=== PATIENT | female | born 1990 | race Caucasian/White ===

== ENCOUNTER 2019-08-09 15:31 | Inpatient (IN) | payer MEDICAID ==
[~2019-08-09] VITALS: Ht 160 cm; Wt 60.0 kg
[2019-08-09] MEDS ORDERED: RisperiDONE 1 MG TABLET PO ONE (16:00)
[2019-08-09] MEDS ORDERED: LORazepam 2 MG TABLET PO ONE (16:15)
[2019-08-09 16:17] LABS: BASOPHILS % (AUTO) 0.4 % (0.0-2.0); EOSINOPHILS % (AUTO) 0.1 % (1.0-6.0); HEMATOCRIT 40.4 % (36-46); HEMOGLOBIN 13.2 g/dL (12.0-16.0); LYMPHOCYTES # (AUTO) 0.7 K/uL (1.0-4.8); LYMPHOCYTES % (AUTO) 5.1 % (22.0-44.0); MEAN CORPUSCULAR HEMOGLOBIN 29.2 pg (26.0-34.0); MEAN CORPUSCULAR HGB CONC 32.8 G/dL (31.0-37.0); MEAN CORPUSCULAR VOLUME 89 fL (80-100); MONOCYTES # (AUTO) 0.6 K/uL (0.1-1.0); MONOCYTES % (AUTO) 4.7 % (2.0-9.0); NEUTROPHILS # (AUTO) 12.3 K/uL (1.8-7.7); PLATELET COUNT (AUTO) 281 K/uL (150-450); RED BLOOD CELL COUNT(AUTO) 4.53 MIL/uL (4.00-5.20); RED CELL DISTRIBUTION WIDTH 13.6 % (11.5-14.5)
[2019-08-09 16:30] LABS: NEUTROPHILS % (AUTO) 89.7 % (40.0-70.0)
[2019-08-09 16:49] LABS: ALANINE AMINOTRANSFERASE 12 U/L (12-78); ALBUMIN 4.1 g/dL (3.4-5.0); ALKALINE PHOSPHATASE 68 U/L (46-116); ANION GAP 14 mmol/L (8-16); ASPARTATE AMINOTRANSFERASE 12 U/L (15-37); BILIRUBIN,TOTAL 0.3 mg/dL (0.1-1.0); CALCIUM, TOTAL 9.2 mg/dL (8.8-10.5); CARBON DIOXIDE 25 mmol/L (22-29); CHLORIDE 100 mmol/L (98-107); GLOMERULAR FILTR. RATE CALC > 60 mL/min (>60); GLUCOSE,RANDOM 120 mg/dL (70-110); POTASSIUM 3.8 mmol/L (3.5-5.1); SODIUM SERUM 139 mmol/L (136-145); TOTAL PROTEIN, SERUM 8.5 g/dL (6.4-8.2); UREA NITROGEN, BLOOD 12 mg/dL (7-18)
[2019-08-09 16:54] LABS: AMPHET/METH SCREEN,URINE NEGATIVE (NEGATIVE); BARBITURATE SCREEN, URINE NEGATIVE (NEGATIVE); BENZODIAZEPINES SCREEN,URINE NEGATIVE (NEGATIVE); CANNABINOID SCREEN,URINE NEGATIVE (NEGATIVE); COCAINE SCREEN,URINE NEGATIVE (NEGATIVE); METHADONE SCREEN, URINE NEGATIVE (NEGATIVE); OPIATE SCREEN,URINE NEGATIVE (NEGATIVE)
[2019-08-09 16:55] LABS: PHENCYCLIDINE SCREEN,URINE NEGATIVE (NEGATIVE)
[2019-08-09 20:19] VITALS: BP 135/75
[2019-08-10 07:48] LABS: CHOL/HDL RATIO 2.4 (3.9-5.7)
[2019-08-10 08:57] VITALS: BP 110/88
[2019-08-10] MEDS: LORazepam 2 MG TABLET PO PRN (09:53)
[2019-08-10] MEDS: HALOPERIDOL 5 MG TABLET PO PRN (09:53)
[2019-08-10] MEDS: RisperiDONE 2 MG TABLET PO SCH ×2 (11:36→20:07)
[2019-08-10] MEDS ORDERED: DOCUSATE SODIUM 100 MG CAPSULE PO PRN (16:45)
[2019-08-10] MEDS ORDERED: ONDANSETRON HCL 4 MG TABLET PO PRN (16:45)
[2019-08-10] MEDS ORDERED: ALBUTEROL SULFATE HFA 90 MCG/PUFF 8 GM INHALER IH PRN (16:45)
[2019-08-10] MEDS ORDERED: IBUPROFEN 400 MG TABLET PO PRN (16:45)
[2019-08-10] MEDS ORDERED: GuaiFENesin/D-METHORPHAN [SUGAR-FREE] 200-20MG/10 ML SYRUP UDCUP PO PRN (16:45)
[2019-08-10] MEDS ORDERED: NICOTINE 14 MG/24 HOUR PATCH TD PRN (16:45)
[2019-08-10] MEDS ORDERED: MAG HYDROX/AL HYDROX/SIMETH ES 30 ML SUSPENSION UDCUP PO PRN (16:45)
[2019-08-10] MEDS ORDERED: MAGNESIUM HYDROXIDE SUSPENSION 30 ML UDCUP PO PRN (16:45)
[2019-08-10] MEDS ORDERED: PETROLATUM,WHITE 28 GM JELLY TP PRN (16:45)
[2019-08-10] MEDS ORDERED: LOPERAMIDE HCL 2 MG CAPSULE PO PRN (16:45)
[2019-08-10] MEDS ORDERED: ACETAMINOPHEN 325 MG TABLET PO PRN (16:45)
[2019-08-10] MEDS ORDERED: CloNIDine HCL 0.1 MG TABLET PO PRN (16:45)
[2019-08-10 19:14] VITALS: BP 102/61
[2019-08-11 07:34] LABS: APPEARANCE,URINE CLOUDY (CLEAR); BILIRUBIN,URINE NEGATIVE (NEGATIVE); GLUCOSE, URINE (UA) NEGATIVE (NEGATIVE); KETONES,URINE NEGATIVE (NEGATIVE); LEUKOCYTE ESTERASE ,URINE SMALL (NEGATIVE); NITRATE,URINE NEGATIVE (NEGATIVE); OCCULT BLOOD,URINE NEGATIVE (NEGATIVE); PH,URINE 6.5 (5.0-8.0); PROTEIN,URINE NEGATIVE (NEGATIVE); UROBILINOGEN,URINE 0.2 mg/dL (<=1.0)
[2019-08-11 07:41] LABS: AMPHET/METH SCREEN,URINE NEGATIVE (NEGATIVE); BARBITURATE SCREEN, URINE NEGATIVE (NEGATIVE); BENZODIAZEPINES SCREEN,URINE NEGATIVE (NEGATIVE); CANNABINOID SCREEN,URINE NEGATIVE (NEGATIVE); COCAINE SCREEN,URINE NEGATIVE (NEGATIVE); METHADONE SCREEN, URINE NEGATIVE (NEGATIVE); OPIATE SCREEN,URINE NEGATIVE (NEGATIVE)
[2019-08-11 07:42] LABS: PHENCYCLIDINE SCREEN,URINE NEGATIVE (NEGATIVE)
[2019-08-11 07:46] LABS: BACTERIA,URINE Few /HPF (None Seen); RBC,URINE 0-2 /HPF (0-2); SQUAMOUS EPITHELIAL CELL,UR Moderate /LPF (None Seen)
[2019-08-11 08:00] VITALS: BP 106/72
[2019-08-11] MEDS: RisperiDONE 2 MG TABLET PO SCH ×2 (09:26→20:40)
[2019-08-11 16:16] VITALS: BP 129/86
[2019-08-12] MEDS: RisperiDONE 2 MG TABLET PO SCH ×2 (08:50→20:22)
[2019-08-12 09:17] VITALS: BP 114/80
[2019-08-12 16:48] VITALS: BP 116/93
[2019-08-12] MEDS: CEPHALEXIN MONOHYDRATE 500 MG CAPSULE PO SCH (23:46)
[2019-08-13 09:27] VITALS: BP 133/57
[2019-08-13] MEDS: HALOPERIDOL 5 MG TABLET PO PRN (09:27)
[2019-08-13] MEDS: LORazepam 2 MG TABLET PO PRN (09:27)
[2019-08-13] MEDS: RisperiDONE 2 MG TABLET PO SCH ×2 (09:27→20:28)
[2019-08-13] MEDS: CEPHALEXIN MONOHYDRATE 500 MG CAPSULE PO SCH ×3 (09:27→23:57)
[2019-08-13 18:59] VITALS: BP 121/75
[2019-08-14 08:38] LABS: BASOPHILS % (AUTO) 0.4 % (0.0-2.0); EOSINOPHILS % (AUTO) 1.4 % (1.0-6.0); HEMATOCRIT 39.4 % (36-46); HEMOGLOBIN 12.9 g/dL (12.0-16.0); LYMPHOCYTES # (AUTO) 1.1 K/uL (1.0-4.8); LYMPHOCYTES % (AUTO) 12.3 % (22.0-44.0); MEAN CORPUSCULAR HEMOGLOBIN 29.2 pg (26.0-34.0); MEAN CORPUSCULAR HGB CONC 32.7 G/dL (31.0-37.0); MEAN CORPUSCULAR VOLUME 89 fL (80-100); MONOCYTES # (AUTO) 0.5 K/uL (0.1-1.0); NEUTROPHILS # (AUTO) 7.2 K/uL (1.8-7.7); NEUTROPHILS % (AUTO) 79.9 % (40.0-70.0); PLATELET COUNT (AUTO) 271 K/uL (150-450); RED BLOOD CELL COUNT(AUTO) 4.41 MIL/uL (4.00-5.20); RED CELL DISTRIBUTION WIDTH 13.5 % (11.5-14.5)
[2019-08-14] MEDS: CEPHALEXIN MONOHYDRATE 500 MG CAPSULE PO SCH ×3 (09:10→23:59)
[2019-08-14] MEDS: RisperiDONE 2 MG TABLET PO SCH ×2 (09:10→20:33)
[2019-08-14] MEDS: HALOPERIDOL 5 MG TABLET PO PRN (09:12)
[2019-08-14] MEDS: LORazepam 2 MG TABLET PO PRN (09:12)
[2019-08-14] MEDS: DIVALPROEX SODIUM 500 MG DR TABLET PO SCH ×2 (10:15→20:33)
[2019-08-14 10:58] VITALS: BP 113/66
[2019-08-14 16:10] VITALS: BP 108/40
[2019-08-15 08:27] VITALS: BP 116/64
[2019-08-15] MEDS: LORazepam 2 MG TABLET PO PRN (08:44)
[2019-08-15] MEDS: CEPHALEXIN MONOHYDRATE 500 MG CAPSULE PO SCH ×3 (08:44→23:51)
[2019-08-15] MEDS: RisperiDONE 2 MG TABLET PO SCH ×2 (08:44→20:28)
[2019-08-15] MEDS: DIVALPROEX SODIUM 500 MG DR TABLET PO SCH ×2 (08:44→20:28)
[2019-08-15] MEDS: HALOPERIDOL 5 MG TABLET PO PRN (08:44)
[2019-08-15 16:00] VITALS: BP 113/70
[2019-08-16] MEDS: CEPHALEXIN MONOHYDRATE 500 MG CAPSULE PO SCH ×2 (08:48→15:56)
[2019-08-16] MEDS: DIVALPROEX SODIUM 500 MG DR TABLET PO SCH ×2 (08:48→20:20)
[2019-08-16] MEDS: RisperiDONE 2 MG TABLET PO SCH ×2 (08:48→20:20)
[2019-08-16 09:46] VITALS: BP 109/72
[2019-08-16 16:02] VITALS: BP 110/80
[2019-08-17] MEDS: CEPHALEXIN MONOHYDRATE 500 MG CAPSULE PO SCH ×3 (00:01→16:03)
[2019-08-17] MEDS: ZOLPIDEM TARTRATE 10 MG TABLET PO PRN (00:17)
[2019-08-17 01:35] VITALS: BP 116/84
[2019-08-17] MEDS: DIVALPROEX SODIUM 500 MG DR TABLET PO SCH ×2 (08:48→20:55)
[2019-08-17] MEDS: RisperiDONE 2 MG TABLET PO SCH ×2 (08:48→20:55)
[2019-08-17 10:19] VITALS: BP 108/66
[2019-08-17 17:12] VITALS: BP 114/85
[2019-08-18] MEDS: CEPHALEXIN MONOHYDRATE 500 MG CAPSULE PO SCH ×3 (00:01→16:57)
[2019-08-18] MEDS: ZOLPIDEM TARTRATE 10 MG TABLET PO PRN (02:53)
[2019-08-18 08:02] VITALS: BP 95/60
[2019-08-18] MEDS: RisperiDONE 2 MG TABLET PO SCH ×2 (09:07→20:53)
[2019-08-18] MEDS: DIVALPROEX SODIUM 500 MG DR TABLET PO SCH ×2 (09:07→20:53)
[2019-08-18 16:08] VITALS: BP 107/63
[2019-08-19 08:25] VITALS: BP 131/78
[2019-08-19 09:51] VITALS: BP 131/78
[2019-08-19] MEDS: RisperiDONE 2 MG TABLET PO SCH (09:55)
[2019-08-19] MEDS: DIVALPROEX SODIUM 500 MG DR TABLET PO SCH ×2 (09:55→21:12)
[2019-08-19 19:25] VITALS: BP 105/64
[2019-08-19] MEDS: RisperiDONE 3 MG TABLET PO SCH (21:13)
[2019-08-20 00:50] VITALS: BP 102/60
[2019-08-20] MEDS: ZOLPIDEM TARTRATE 10 MG TABLET PO PRN ×2 (00:51→20:13)
[2019-08-20 08:15] VITALS: BP 125/57
[2019-08-20] MEDS: DIVALPROEX SODIUM 500 MG DR TABLET PO SCH ×2 (08:38→20:13)
[2019-08-20] MEDS: RisperiDONE 3 MG TABLET PO SCH ×2 (08:38→20:14)
[2019-08-20 16:00] VITALS: BP 101/70
[2019-08-20 18:30] VITALS: BP 117/80
[2019-08-20] MEDS: LORazepam 2 MG TABLET PO PRN (18:35)
[2019-08-21 08:26] VITALS: BP 117/74
[2019-08-21] MEDS: RisperiDONE 3 MG TABLET PO SCH (09:29)
[2019-08-21] MEDS: DIVALPROEX SODIUM 500 MG DR TABLET PO SCH (09:29)
[2019-08-21] MEDS ORDERED: RISP3 PO (09:34)
[2019-08-21] MEDS ORDERED: DIVA-78 PO (09:34)
== END 2019-08-21 17:00 | disposition home or self-care (01) | DRG 885 ==
LOC: EMS 15:33 → 3EI 19:46
DX: F25.1 Schizoaffective disorder, depressive type (principal); N39.0 Urinary tract infection, site not specified; R45.851 Suicidal ideations; F41.9 Anxiety disorder, unspecified; F19.10 Other psychoactive substance abuse, uncomplicated; E78.5 Hyperlipidemia, unspecified; Z79.899 Other long term (current) drug therapy; Z71.51 Drug abuse counseling and surveillance of drug abuser
CPT/HCPCS: 80307; 87086; G0480

== ENCOUNTER 2021-11-01 17:53 | Inpatient (IN) | payer MEDICAID ==
[~2021-11-01] VITALS: Ht 161.3 cm; Wt 73.2 kg
[~2021-11-01 17:53] MED LIST: DIVA-112 PO; RISP3TAB35 PO
[2021-11-01] MEDS ORDERED: LORazepam 2 MG TABLET PO PRN (18:45)
[2021-11-01] MEDS ORDERED: ZOLPIDEM TARTRATE 10 MG TABLET PO PRN (18:45)
[2021-11-01] MEDS ORDERED: HALOPERIDOL 5 MG TABLET PO ONE (18:45)
[2021-11-01] MEDS ORDERED: LORazepam 1 MG TABLET PO ONE (18:45)
[2021-11-01] MEDS ORDERED: OLANZapine 5 MG RAPDIS TABLET PO PRN (18:45)
[2021-11-01 19:03] LABS: BASOPHILS % (AUTO) 0.5 % (0.0-2.0); HEMATOCRIT 40.7 % (36-46); HEMOGLOBIN 13.7 g/dL (12.0-16.0); LYMPHOCYTES # (AUTO) 1.4 K/uL (1.0-4.8); LYMPHOCYTES % (AUTO) 15.3 % (22.0-44.0); MEAN CORPUSCULAR HEMOGLOBIN 29.6 pg (26.0-34.0); MEAN CORPUSCULAR HGB CONC 33.8 G/dL (31.0-37.0); MEAN CORPUSCULAR VOLUME 88 fL (80-100); MONOCYTES # (AUTO) 0.7 K/uL (0.1-1.0); MONOCYTES % (AUTO) 7.3 % (2.0-9.0); NEUTROPHILS # (AUTO) 7.1 K/uL (1.8-7.7); NEUTROPHILS % (AUTO) 75.9 % (40.0-70.0); PLATELET COUNT (AUTO) 367 K/uL (150-450); RED BLOOD CELL COUNT(AUTO) 4.65 MIL/uL (4.00-5.20); RED CELL DISTRIBUTION WIDTH 14.2 % (11.5-14.5)
[2021-11-01 19:14] LABS: ANION GAP 12 mmol/L (8-16); CALCIUM, TOTAL 9.4 mg/dL (8.8-10.5); CARBON DIOXIDE 26 mmol/L (22-29); CHLORIDE 99 mmol/L (98-107); CREATININE 0.83 mg/dL (0.60-1.30); GLOMERULAR FILTR. RATE CALC > 60 mL/min (>60); GLUCOSE,RANDOM 118 mg/dL (70-110); POTASSIUM 3.9 mmol/L (3.5-5.1); SODIUM SERUM 137 mmol/L (136-145); UREA NITROGEN, BLOOD 10 mg/dL (7-18)
[2021-11-01 19:21] LABS: ALANINE AMINOTRANSFERASE 27 U/L (12-78); ALBUMIN 3.6 g/dL (3.4-5.0); ALKALINE PHOSPHATASE 81 U/L (46-116); ASPARTATE AMINOTRANSFERASE 18 U/L (15-37); BILIRUBIN,TOTAL 0.2 mg/dL (0.1-1.0); TOTAL PROTEIN, SERUM 8.4 g/dL (6.4-8.2)
[2021-11-01 19:28] LABS: COVID AG,FIA SOURCE NASOPHARYNGEAL
[2021-11-01 19:32] LABS: APPEARANCE,URINE CLEAR (CLEAR); BILIRUBIN,URINE NEGATIVE (NEGATIVE); GLUCOSE, URINE (UA) NEGATIVE (NEGATIVE); KETONES,URINE TRACE mg/dL (NEGATIVE); LEUKOCYTE ESTERASE ,URINE SMALL (NEGATIVE); NITRATE,URINE NEGATIVE (NEGATIVE); OCCULT BLOOD,URINE NEGATIVE (NEGATIVE); PROTEIN,URINE NEGATIVE (NEGATIVE); UROBILINOGEN,URINE 0.2 mg/dL (<=1.0)
[2021-11-01 19:39] LABS: AMPHET/METH SCREEN,URINE POSITIVE (NEGATIVE); BARBITURATE SCREEN, URINE NEGATIVE (NEGATIVE); BENZODIAZEPINES SCREEN,URINE NEGATIVE (NEGATIVE); CANNABINOID SCREEN,URINE NEGATIVE (NEGATIVE); COCAINE SCREEN,URINE NEGATIVE (NEGATIVE); METHADONE SCREEN, URINE NEGATIVE (NEGATIVE); OPIATE SCREEN,URINE NEGATIVE (NEGATIVE)
[2021-11-01 19:43] LABS: PHENCYCLIDINE SCREEN,URINE NEGATIVE (NEGATIVE)
[2021-11-01 19:49] LABS: BACTERIA,URINE Many /HPF (None Seen); SQUAMOUS EPITHELIAL CELL,UR Rare /LPF (None Seen)
[2021-11-01 21:03] LABS: HCG,QUANTITATIVE 8320 mIU/mL (0-6)
[2021-11-02 01:01] VITALS: BP 121/80
[2021-11-02 06:46] LABS: CHOL/HDL RATIO 2.6 (3.9-5.7)
[2021-11-02] MEDS ORDERED: CYANOCOBALAMIN 1,000 MCG/ML VIAL IM ONE (09:30)
[2021-11-02] MEDS ORDERED: GuaiFENesin/D-METHORPHAN [SUGAR-FREE] 200-20MG/10 ML SYRUP UDCUP PO PRN (09:30)
[2021-11-02] MEDS ORDERED: LOPERAMIDE HCL 2 MG CAPSULE PO PRN (09:30)
[2021-11-02] MEDS ORDERED: HydrOXYzine PAMOATE 50 MG CAPSULE PO PRN (09:30)
[2021-11-02 09:46] VITALS: BP 118/79
[2021-11-02 09:49] VITALS: BP 118/79
[2021-11-02] MEDS ORDERED: LURASIDONE HCL 20 MG TABLET PO PRN (14:15)
[2021-11-02] MEDS ORDERED: DiphenhydrAMINE HCL 25 MG CAPSULE PO PRN ×2 (14:15)
[2021-11-02] MEDS: PRENATAL NO.137/IRON/FOLIC ACID TABLET PO SCH (14:40)
[2021-11-02] MEDS: LURASIDONE HCL 40 MG TABLET PO SCH (16:03)
[2021-11-02] MEDS: THIAMINE 100 MG TABLET PO SCH (16:03)
[2021-11-02 16:54] VITALS: BP 112/65
[2021-11-03 07:34] LABS: HEMOGLOBIN A1C 5.6 % (3.8-5.6)
[2021-11-03 07:39] LABS: APPEARANCE,URINE CLOUDY (CLEAR); BILIRUBIN,URINE NEGATIVE (NEGATIVE); GLUCOSE, URINE (UA) NEGATIVE (NEGATIVE); KETONES,URINE NEGATIVE (NEGATIVE); LEUKOCYTE ESTERASE ,URINE NEGATIVE (NEGATIVE); NITRATE,URINE POSITIVE (NEGATIVE); OCCULT BLOOD,URINE NEGATIVE (NEGATIVE); PH,URINE 6.5 (5.0-8.0); PROTEIN,URINE NEGATIVE (NEGATIVE); UROBILINOGEN,URINE 0.2 mg/dL (<=1.0)
[2021-11-03 07:43] LABS: BACTERIA,URINE Many /HPF (None Seen); RBC,URINE None Seen /HPF (0-2); WBC,URINE 0-2 /HPF (0-5)
[2021-11-03 07:47] LABS: CHOL/HDL RATIO 2.8 (3.9-5.7); FREE T4 (FREE THYROXINE) 0.96 ng/dL (0.76-1.46); THYROID STIMULATING HORMONE 0.52 uIU/mL (0.36-3.74)
[2021-11-03 09:00] VITALS: BP 105/66
[2021-11-03] MEDS: THIAMINE 100 MG TABLET PO SCH ×2 (09:00→16:18)
[2021-11-03] MEDS: FOLIC ACID 1 MG TABLET PO SCH (09:00)
[2021-11-03] MEDS: MULTIVITAMINS WITH MINERALS, THERAPEUTIC TABLET PO SCH (09:01)
[2021-11-03] MEDS: PRENATAL NO.137/IRON/FOLIC ACID TABLET PO SCH (09:01)
[2021-11-03 09:14] VITALS: BP 100/56
[2021-11-03 13:51] VITALS: BP 117/89
[2021-11-03] MEDS ORDERED: LURA40TA2 PO (15:44)
[2021-11-03] MEDS ORDERED: PREN-217 PO (15:44)
[2021-11-03] MEDS: LURASIDONE HCL 40 MG TABLET PO SCH (16:18)
[2021-11-03 16:29] VITALS: BP 110/70
[2021-11-04 08:00] VITALS: BP 107/61
[2021-11-04] MEDS: MULTIVITAMINS WITH MINERALS, THERAPEUTIC TABLET PO SCH (09:00)
[2021-11-04 09:20] VITALS: BP 110/72
[2021-11-04] MEDS: THIAMINE 100 MG TABLET PO SCH (11:13)
[2021-11-04] MEDS: PRENATAL NO.137/IRON/FOLIC ACID TABLET PO SCH (11:13)
[2021-11-04] MEDS: FOLIC ACID 1 MG TABLET PO SCH (11:14)
== END 2021-11-04 15:10 | disposition home or self-care (01) | DRG 750 ==
LOC: EMS 17:58 → 3EI 23:00
PROVIDERS: ADMIT Psychiatry & Neurology Psychiatry; ATTEND Psychiatry & Neurology Psychiatry
DX: F25.1 Schizoaffective disorder, depressive type (principal); Z59.02 Unsheltered homelessness; F10.10 Alcohol abuse, uncomplicated; F19.10 Other psychoactive substance abuse, uncomplicated; F15.90 Other stimulant use, unspecified, uncomplicated; F41.0 Panic disorder [episodic paroxysmal anxiety]; F17.200 Nicotine dependence, unspecified, uncomplicated; Z20.822 Contact with and (suspected) exposure to COVID-19; Y90.9 Presence of alcohol in blood, level not specified; Z91.19 Patient's noncompliance with other medical treatment and regimen; Z79.899 Other long term (current) drug therapy
CPT/HCPCS: 80053; 80061; 81001; 83036; 84439; 84443; 84702; 84703; 85025; 86592; 87086; 99285; G0480; J3420

== ENCOUNTER 2021-11-22 10:13 | Emergency (ER) | payer MEDICAID ==
[~2021-11-22] VITALS: Ht 157.5 cm; Wt 60.0 kg
[~2021-11-22 10:13] MED LIST changes: -DIVA-112 PO; +LURA40TA2 PO; +PREN-217 PO; -RISP3TAB35 PO
[2021-11-22] MEDS ORDERED: ACETAMINOPHEN 325 MG TABLET PO ONE (11:15)
[2021-11-22 11:39] LABS: BASOPHILS % (AUTO) 0.8 % (0.0-2.0); HEMATOCRIT 40.6 % (36-46); HEMOGLOBIN 13.5 g/dL (12.0-16.0); LYMPHOCYTES # (AUTO) 1.1 K/uL (1.0-4.8); LYMPHOCYTES % (AUTO) 14.8 % (22.0-44.0); MEAN CORPUSCULAR HEMOGLOBIN 29.6 pg (26.0-34.0); MEAN CORPUSCULAR HGB CONC 33.2 G/dL (31.0-37.0); MEAN CORPUSCULAR VOLUME 89 fL (80-100); MONOCYTES # (AUTO) 0.6 K/uL (0.1-1.0); MONOCYTES % (AUTO) 8.4 % (2.0-9.0); NEUTROPHILS # (AUTO) 5.8 K/uL (1.8-7.7); PLATELET COUNT (AUTO) 358 K/uL (150-450); RED BLOOD CELL COUNT(AUTO) 4.55 MIL/uL (4.00-5.20); RED CELL DISTRIBUTION WIDTH 14.8 % (11.5-14.5)
[2021-11-22 11:46] LABS: ANION GAP 9 mmol/L (8-16); CARBON DIOXIDE 27 mmol/L (22-29); CHLORIDE 101 mmol/L (98-107); CREATININE 0.74 mg/dL (0.60-1.30); GLOMERULAR FILTR. RATE CALC > 60 mL/min (>60); GLUCOSE,RANDOM 81 mg/dL (70-110); POTASSIUM 3.6 mmol/L (3.5-5.1); SODIUM SERUM 137 mmol/L (136-145); UREA NITROGEN, BLOOD 9 mg/dL (7-18)
[2021-11-22 11:51] LABS: COVID AG,FIA SOURCE NASOPHARYNGEAL
[2021-11-22 12:13] LABS: ALANINE AMINOTRANSFERASE 12 U/L (12-78); ALBUMIN 3.3 g/dL (3.4-5.0); ALKALINE PHOSPHATASE 69 U/L (46-116); ASPARTATE AMINOTRANSFERASE 9 U/L (15-37); BILIRUBIN,TOTAL 0.2 mg/dL (0.1-1.0); HCG,QUANTITATIVE 118316 mIU/mL (0-6); TOTAL PROTEIN, SERUM 7.7 g/dL (6.4-8.2)
[2021-11-22 12:32] VITALS: BP 114/56
[2021-11-22 16:23] LABS: AMPHET/METH SCREEN,URINE POSITIVE (NEGATIVE); BARBITURATE SCREEN, URINE NEGATIVE (NEGATIVE); BENZODIAZEPINES SCREEN,URINE NEGATIVE (NEGATIVE); CANNABINOID SCREEN,URINE NEGATIVE (NEGATIVE); COCAINE SCREEN,URINE NEGATIVE (NEGATIVE); METHADONE SCREEN, URINE NEGATIVE (NEGATIVE); OPIATE SCREEN,URINE NEGATIVE (NEGATIVE)
[2021-11-22 16:25] LABS: PHENCYCLIDINE SCREEN,URINE NEGATIVE (NEGATIVE)
== END 2021-11-22 15:38 | disposition home or self-care (01) ==
LOC: EMS 10:13
DX: O26.891 Other specified pregnancy related conditions, first trimester (principal); F41.9 Anxiety disorder, unspecified; F32.9 Major depressive disorder, single episode, unspecified; Z79.899 Other long term (current) drug therapy; Z3A.01 Less than 8 weeks gestation of pregnancy; Z20.822 Contact with and (suspected) exposure to COVID-19
CPT/HCPCS: 36415; 76801; 80053; 80307; 84702; 85025; 87426; 99284; G0480

== ENCOUNTER 2023-12-21 18:01 | Inpatient (IN) | payer MEDICAID ==
[~2023-12-21] VITALS: Ht 162.6 cm; Wt 69.0 kg
[~2023-12-21 18:01] MED LIST changes: +BUPR-49 PO; -LURA40TA2 PO; -PREN-217 PO
[2023-12-21 18:33] LABS: BASOPHILS % (AUTO) 0.5 % (0.0-2.0); EOSINOPHILS % (AUTO) 1.1 % (1.0-6.0); HEMOGLOBIN 13.8 g/dL (12.0-16.0); LYMPHOCYTES # (AUTO) 2.2 K/uL (1.0-4.8); LYMPHOCYTES % (AUTO) 16.9 % (22.0-44.0); MEAN CORPUSCULAR HEMOGLOBIN 29.5 pg (26.0-34.0); MEAN CORPUSCULAR HGB CONC 32.9 G/dL (31.0-37.0); MEAN CORPUSCULAR VOLUME 90 fL (80-100); MONOCYTES % (AUTO) 7.2 % (2.0-9.0); NEUTROPHILS # (AUTO) 9.9 K/uL (1.8-7.7); NEUTROPHILS % (AUTO) 74.3 % (40.0-70.0); PLATELET COUNT (AUTO) 394 K/uL (150-450); RED BLOOD CELL COUNT(AUTO) 4.68 MIL/uL (4.00-5.20); RED CELL DISTRIBUTION WIDTH 13.7 % (11.5-14.5); WHITE BLOOD COUNT (AUTO) 13.3 K/uL (4.5-11.0)
[2023-12-21 18:45] LABS: ANION GAP 10 mmol/L (8-16); CALCIUM, TOTAL 9.1 mg/dL (8.8-10.5); CARBON DIOXIDE 27 mmol/L (22-29); CHLORIDE 98 mmol/L (98-107); CREATININE 0.98 mg/dL (0.60-1.30); GLOMERULAR FILTR. RATE CALC > 60 mL/min (>60); GLUCOSE,RANDOM 97 mg/dL (70-110); POTASSIUM 4.1 mmol/L (3.5-5.1); SODIUM SERUM 135 mmol/L (136-145); UREA NITROGEN, BLOOD 11 mg/dL (7-18)
[2023-12-21 18:58] LABS: ALANINE AMINOTRANSFERASE 21 U/L (12-78); ALBUMIN 3.7 g/dL (3.4-5.0); ALKALINE PHOSPHATASE 80 U/L (46-116); ASPARTATE AMINOTRANSFERASE 18 U/L (15-37); BILIRUBIN,TOTAL 0.2 mg/dL (0.1-1.0); HCG,QUANTITATIVE < 1 mIU/mL (0-6); TOTAL PROTEIN, SERUM 8.5 g/dL (6.4-8.2)
[2023-12-21 19:02] LABS: PH,URINE DRUG SCREEN 5.5 (5.0-8.0)
[2023-12-21 19:12] LABS: COVID AG,FIA SOURCE NPH
[2023-12-21 19:34] LABS: ALCOHOL, URINE DRUG SCREEN NEGATIVE (NEGATIVE); AMPHET/METH SCREEN,URINE POSITIVE (NEGATIVE); BARBITURATE SCREEN, URINE NEGATIVE (NEGATIVE); BENZODIAZEPINES SCREEN,URINE NEGATIVE (NEGATIVE); CANNABINOID SCREEN,URINE NEGATIVE (NEGATIVE); COCAINE SCREEN,URINE NEGATIVE (NEGATIVE); METHADONE SCREEN, URINE NEGATIVE (NEGATIVE); OPIATE SCREEN,URINE NEGATIVE (NEGATIVE); PHENCYCLIDINE SCREEN,URINE NEGATIVE (NEGATIVE)
[2023-12-21 19:36] LABS: SARS-COV2 (COVID) ANTIGEN,FIA Negative (Negative)
[2023-12-21 19:52] LABS: ALCOHOL, BLOOD (SERUM) < 3 mg/dL (0-10)
[2023-12-21] MEDS ORDERED: ZOLPIDEM TARTRATE 10 MG TABLET PO PRN (20:45)
[2023-12-21] MEDS: LORazepam 2 MG TABLET PO PRN (21:03)
[2023-12-21] MEDS: HALOPERIDOL 5 MG TABLET PO PRN (21:03)
[2023-12-21 23:20] VITALS: BP 110/74; PULSE 90; RESP 18; TEMP 97.6; O2SAT 98
[2023-12-22] MEDS ORDERED: MAGNESIUM HYDROXIDE SUSPENSION 30 ML UDCUP PO PRN (07:00)
[2023-12-22] MEDS ORDERED: PETROLATUM,WHITE 28 GM JELLY TP PRN (07:00)
[2023-12-22] MEDS ORDERED: CloNIDine HCL 0.1 MG TABLET PO PRN (07:00)
[2023-12-22] MEDS ORDERED: NICOTINE 14 MG/24 HOUR PATCH TD PRN (07:00)
[2023-12-22] MEDS ORDERED: LOPERAMIDE HCL 2 MG CAPSULE PO PRN (07:00)
[2023-12-22] MEDS ORDERED: ACETAMINOPHEN 325 MG TABLET PO PRN (07:00)
[2023-12-22] MEDS ORDERED: GuaiFENesin/D-METHORPHAN [SUGAR-FREE] 200-20MG/10 ML SYRUP UDCUP PO PRN (07:00)
[2023-12-22] MEDS ORDERED: ALBUTEROL SULFATE HFA 90 MCG/PUFF 8 GM INHALER IH PRN (07:00)
[2023-12-22] MEDS ORDERED: MAG HYDROX/ALUMINUM HYD/SIMETH ES 30 ML SUSPENSION UDCUP PO PRN (07:00)
[2023-12-22] MEDS ORDERED: ONDANSETRON HCL 4 MG TABLET PO PRN (07:00)
[2023-12-22] MEDS ORDERED: IBUPROFEN 400 MG TABLET PO PRN (07:00)
[2023-12-22 10:26] VITALS: BP 115/81; PULSE 97; RESP 18; TEMP 96.8; O2SAT 98
[2023-12-22] MEDS ORDERED: ARIP10TA38 PO (16:47)
[2023-12-22] MEDS: ARIPiprazole 10 MG TABLET PO SCH (18:09)
[2023-12-22 21:24] VITALS: BP 125/77; PULSE 76; RESP 18; TEMP 97.1; O2SAT 98
[2023-12-23 09:10] LABS: HEMOGLOBIN A1C 5.8 % (3.8-5.6)
[2023-12-23 09:24] LABS: CHOL/HDL RATIO 2.8 (3.9-5.7); THYROID STIMULATING HORMONE 0.23 uIU/mL (0.36-3.74)
[2023-12-23 09:34] VITALS: BP 111/56; PULSE 99; RESP 18; TEMP 97.4; O2SAT 97
[2023-12-23 20:42] VITALS: BP 111/56; PULSE 99; RESP 18; TEMP 97.4; O2SAT 97
[2023-12-24 09:23] VITALS: TEMP 97
[2023-12-24 20:45] VITALS: BP 106/61; PULSE 77; RESP 19; TEMP 97.9; O2SAT 98
[2023-12-24 20:45] LABS: APPEARANCE,URINE CLEAR (CLEAR); BILIRUBIN,URINE NEGATIVE (NEGATIVE); COLOR,URINE LIGHT YELLOW (YELLOW); GLUCOSE, URINE (UA) NEGATIVE (NEGATIVE); KETONES,URINE NEGATIVE (NEGATIVE); LEUKOCYTE ESTERASE ,URINE NEGATIVE (NEGATIVE); NITRATE,URINE NEGATIVE (NEGATIVE); OCCULT BLOOD,URINE NEGATIVE (NEGATIVE); PH,URINE 6.5 (5.0-8.0); PH,URINE DRUG SCREEN 6.5 (5.0-8.0); PROTEIN,URINE TRACE mg/dL (NEGATIVE); SPECIFIC GRAVITIY, URINE 1.023 (1.003-1.030); UROBILINOGEN,URINE <=1.0 mg/dL (<=1.0)
[2023-12-24 20:51] LABS: ALCOHOL, URINE DRUG SCREEN NEGATIVE (NEGATIVE); AMPHET/METH SCREEN,URINE NEGATIVE (NEGATIVE); BARBITURATE SCREEN, URINE NEGATIVE (NEGATIVE); BENZODIAZEPINES SCREEN,URINE NEGATIVE (NEGATIVE); CANNABINOID SCREEN,URINE NEGATIVE (NEGATIVE); COCAINE SCREEN,URINE NEGATIVE (NEGATIVE); METHADONE SCREEN, URINE NEGATIVE (NEGATIVE); OPIATE SCREEN,URINE NEGATIVE (NEGATIVE); PHENCYCLIDINE SCREEN,URINE NEGATIVE (NEGATIVE)
[2023-12-25 09:06] VITALS: BP 100/56; PULSE 84; RESP 18; TEMP 97.4; O2SAT 98
[2023-12-25] MEDS: DOCUSATE SODIUM 100 MG CAPSULE PO PRN (10:41)
[2023-12-25] MEDS ORDERED: ARIP10TA38 PO (14:36)
== END 2023-12-25 17:00 | disposition home or self-care (01) | DRG 750 ==
LOC: EMS 18:01 → 3EI 21:51
PROVIDERS: ADMIT Psychiatry & Neurology Psychiatry; ATTEND Psychiatry & Neurology Psychiatry
PROC: GZHZZZZ Group Psychotherapy (ICD-10-PCS; principal; 2023-12-22)
DX: F25.1 Schizoaffective disorder, depressive type (principal); E87.1 Hypo-osmolality and hyponatremia; R45.851 Suicidal ideations; Z20.822 Contact with and (suspected) exposure to COVID-19; D72.829 Elevated white blood cell count, unspecified; F41.9 Anxiety disorder, unspecified; F15.10 Other stimulant abuse, uncomplicated; Z79.899 Other long term (current) drug therapy; Z88.8 Allergy status to other drugs, medicaments and biological substances
CPT/HCPCS: 80053; 80061; 80307; 81003; 83036; 84443; 84702; 85025; 87081; 99285; G0480

== ENCOUNTER 2024-07-29 23:49 | Emergency (ER) | payer MEDICAID ==
[~2024-07-29] VITALS: Ht 160 cm; Wt 59.1 kg
[~2024-07-29 23:49] MED LIST changes: +ARIP10TA38 PO; -BUPR-49 PO
[2024-07-30 00:35] VITALS: TEMP 97.9
[2024-07-30 01:22] LABS: ANION GAP 13 mmol/L (8-16); CALCIUM, TOTAL 9.7 mg/dL (8.8-10.5); CARBON DIOXIDE 24 mmol/L (22-29); CHLORIDE 101 mmol/L (98-107); GLOMERULAR FILTR. RATE CALC > 60 mL/min (>60); GLUCOSE,RANDOM 100 mg/dL (70-110); POTASSIUM 4.4 mmol/L (3.5-5.1); SODIUM SERUM 138 mmol/L (136-145); UREA NITROGEN, BLOOD 10 mg/dL (7-18)
[2024-07-30 01:31] LABS: BASOPHILS % (AUTO) 0.3 % (0.0-2.0); EOSINOPHILS % (AUTO) 0.1 % (1.0-6.0); HEMATOCRIT 48.8 % (36-46); HEMOGLOBIN 15.7 g/dL (12.0-16.0); LYMPHOCYTES # (AUTO) 1.2 K/uL (1.0-4.8); LYMPHOCYTES % (AUTO) 7.8 % (22.0-44.0); MEAN CORPUSCULAR HEMOGLOBIN 29.8 pg (26.0-34.0); MEAN CORPUSCULAR HGB CONC 32.2 G/dL (31.0-37.0); MEAN CORPUSCULAR VOLUME 93 fL (80-100); MONOCYTES # (AUTO) 0.4 K/uL (0.1-1.0); MONOCYTES % (AUTO) 2.5 % (2.0-9.0); NEUTROPHILS # (AUTO) 13.5 K/uL (1.8-7.7); PLATELET COUNT (AUTO) 393 K/uL (150-450); RED BLOOD CELL COUNT(AUTO) 5.28 MIL/uL (4.00-5.20); RED CELL DISTRIBUTION WIDTH 14.2 % (11.5-14.5); WHITE BLOOD COUNT (AUTO) 15.1 K/uL (4.5-11.0)
[2024-07-30 01:33] LABS: NEUTROPHILS % (AUTO) 89.3 % (40.0-70.0)
[2024-07-30 01:36] LABS: ALCOHOL, BLOOD (SERUM) 84 mg/dL (0-10)
[2024-07-30] MEDS: OLANZapine 10 MG TABLET PO ONE (04:28)
[2024-07-30] MEDS: LORazepam 1 MG TABLET PO ONE (04:28)
[2024-07-30 06:29] VITALS: BP 113/72; PULSE 91; RESP 16; O2SAT 98
== END 2024-07-30 06:45 | disposition home or self-care (01) ==
LOC: EMS 23:49
DX: F29 Unspecified psychosis not due to a substance or known physiological condition (principal); F15.10 Other stimulant abuse, uncomplicated; F41.9 Anxiety disorder, unspecified; F17.210 Nicotine dependence, cigarettes, uncomplicated; Z79.899 Other long term (current) drug therapy
CPT/HCPCS: 99284; 80048; 84703; 85025; 36415; G0480

== ENCOUNTER 2024-08-26 23:48 | Inpatient (IN) | payer MEDICAID ==
[~2024-08-26] VITALS: Ht 160 cm; Wt 67.6 kg
[2024-08-27 01:45] LABS: PH,URINE DRUG SCREEN 5.5 (5.0-8.0)
[2024-08-27 01:52] LABS: BASOPHILS % (AUTO) 0.6 % (0.0-2.0); EOSINOPHILS % (AUTO) 2.1 % (1.0-6.0); HEMATOCRIT 40.6 % (36-46); HEMOGLOBIN 13.3 g/dL (12.0-16.0); LYMPHOCYTES # (AUTO) 2.3 K/uL (1.0-4.8); LYMPHOCYTES % (AUTO) 19.7 % (22.0-44.0); MEAN CORPUSCULAR HGB CONC 32.7 G/dL (31.0-37.0); MEAN CORPUSCULAR VOLUME 92 fL (80-100); MONOCYTES # (AUTO) 0.8 K/uL (0.1-1.0); MONOCYTES % (AUTO) 7.3 % (2.0-9.0); NEUTROPHILS # (AUTO) 8.1 K/uL (1.8-7.7); NEUTROPHILS % (AUTO) 70.3 % (40.0-70.0); PLATELET COUNT (AUTO) 343 K/uL (150-450); RED BLOOD CELL COUNT(AUTO) 4.43 MIL/uL (4.00-5.20); RED CELL DISTRIBUTION WIDTH 14.5 % (11.5-14.5); WHITE BLOOD COUNT (AUTO) 11.5 K/uL (4.5-11.0)
[2024-08-27 01:52] LABS: ALCOHOL, URINE DRUG SCREEN NEGATIVE (NEGATIVE); AMPHET/METH SCREEN,URINE POSITIVE (NEGATIVE); BARBITURATE SCREEN, URINE NEGATIVE (NEGATIVE); BENZODIAZEPINES SCREEN,URINE NEGATIVE (NEGATIVE); CANNABINOID SCREEN,URINE NEGATIVE (NEGATIVE); COCAINE SCREEN,URINE NEGATIVE (NEGATIVE); METHADONE SCREEN, URINE NEGATIVE (NEGATIVE); OPIATE SCREEN,URINE NEGATIVE (NEGATIVE); PHENCYCLIDINE SCREEN,URINE NEGATIVE (NEGATIVE)
[2024-08-27 02:02] LABS: ANION GAP 7 mmol/L (8-16); CALCIUM, TOTAL 8.7 mg/dL (8.8-10.5); CARBON DIOXIDE 29 mmol/L (22-29); CHLORIDE 104 mmol/L (98-107); CREATININE 0.98 mg/dL (0.60-1.30); GLOMERULAR FILTR. RATE CALC > 60 mL/min (>60); GLUCOSE,RANDOM 100 mg/dL (70-110); POTASSIUM 3.7 mmol/L (3.5-5.1); SODIUM SERUM 140 mmol/L (136-145); UREA NITROGEN, BLOOD 13 mg/dL (7-18)
[2024-08-27 02:27] LABS: ALCOHOL, BLOOD (SERUM) < 3 mg/dL (0-10)
[2024-08-27 02:48] LABS: COVID AG,FIA SOURCE NASAL SWAB
[2024-08-27 03:08] LABS: SARS-COV2 (COVID) ANTIGEN,FIA Negative (Negative)
[2024-08-27] MEDS ORDERED: ZOLPIDEM TARTRATE 10 MG TABLET PO PRN (06:15)
[2024-08-27] MEDS ORDERED: OLANZapine 5 MG RAPDIS TABLET PO PRN (06:15)
[2024-08-27] MEDS ORDERED: LORazepam 2 MG TABLET PO PRN (06:15)
[2024-08-27] MEDS ORDERED: ACETAMINOPHEN 325 MG TABLET PO PRN (08:15)
[2024-08-27] MEDS ORDERED: PROMETHAZINE HCL 25 MG TABLET PO PRN (08:15)
[2024-08-27] MEDS ORDERED: GuaiFENesin/D-METHORPHAN [SUGAR-FREE] 200-20MG/10 ML SYRUP UDCUP PO PRN (08:15)
[2024-08-27] MEDS ORDERED: HydrOXYzine PAMOATE 50 MG CAPSULE PO PRN (08:15)
[2024-08-27] MEDS ORDERED: LOPERAMIDE HCL 2 MG CAPSULE PO PRN (08:15)
[2024-08-27] MEDS ORDERED: MAG HYDROX/ALUMINUM HYD/SIMETH ES 30 ML SUSPENSION UDCUP PO PRN (08:15)
[2024-08-27] MEDS ORDERED: TUBERCULIN, PURIFIED PROTEIN DERIVATIVE 5 TU/0.1 ML SYRINGE ID ONE (08:15)
[2024-08-27 08:40] VITALS: O2SAT 100
[2024-08-27 10:51] VITALS: BP 100/60; PULSE 77; RESP 17; TEMP 97
[2024-08-27] MEDS: NALTREXONE HCL 50 MG TABLET PO SCH (11:18)
[2024-08-27] MEDS: MULTIVITAMINS WITH MINERALS, THERAPEUTIC TABLET PO SCH (11:18)
[2024-08-27] MEDS: THIAMINE 100 MG TABLET PO SCH (11:18)
[2024-08-27] MEDS: FLUoxetine HCL 20 MG CAPSULE PO SCH (11:18)
[2024-08-27] MEDS: FOLIC ACID 1 MG TABLET PO SCH (11:18)
[2024-08-27 20:15] VITALS: BP 103/59; PULSE 70; RESP 18; TEMP 98.1; O2SAT 97
[2024-08-27] MEDS: MELATONIN 5 MG TABLET PO SCH (20:21)
[2024-08-27] MEDS: OLANZapine 5 MG RAPDIS TABLET PO SCH (20:22)
[2024-08-28 08:30] VITALS: BP 139/86; PULSE 90; RESP 18; TEMP 97; O2SAT 98
[2024-08-28 10:12] LABS: HEMOGLOBIN A1C 5.8 % (3.8-5.6)
[2024-08-28 10:30] LABS: CHOL/HDL RATIO 2.5 (3.9-5.7); FREE T4 (FREE THYROXINE) 0.93 ng/dL (0.76-1.46); THYROID STIMULATING HORMONE 0.26 uIU/mL (0.36-3.74)
[2024-08-28] MEDS: OLANZapine 10 MG RAPDIS TABLET PO SCH (20:19)
[2024-08-28 20:30] VITALS: BP 105/67; PULSE 65; RESP 20; TEMP 97.2; O2SAT 98
[2024-08-29 08:40] VITALS: BP 100/70; PULSE 76; RESP 18; TEMP 98; O2SAT 98
[2024-08-29 20:00] VITALS: BP 104/65; PULSE 60; RESP 16; TEMP 97.2; O2SAT 95
[2024-08-30 08:31] VITALS: BP 102/67; PULSE 60; RESP 17; TEMP 97.4; O2SAT 99
[2024-08-30 20:41] VITALS: BP 100/58; PULSE 62; RESP 17; TEMP 97.3; O2SAT 95
[2024-08-31 08:40] VITALS: BP 102/57; PULSE 66; RESP 17; TEMP 98.6; O2SAT 99
[2024-08-31 10:20] LABS: BASOPHILS % (AUTO) 0.7 % (0.0-2.0); EOSINOPHILS % (AUTO) 2.6 % (1.0-6.0); HEMATOCRIT 47.2 % (36-46); HEMOGLOBIN 15.4 g/dL (12.0-16.0); LYMPHOCYTES # (AUTO) 1.9 K/uL (1.0-4.8); LYMPHOCYTES % (AUTO) 23.2 % (22.0-44.0); MEAN CORPUSCULAR HEMOGLOBIN 29.9 pg (26.0-34.0); MEAN CORPUSCULAR HGB CONC 32.7 G/dL (31.0-37.0); MEAN CORPUSCULAR VOLUME 91 fL (80-100); MONOCYTES # (AUTO) 0.5 K/uL (0.1-1.0); MONOCYTES % (AUTO) 5.6 % (2.0-9.0); NEUTROPHILS # (AUTO) 5.6 K/uL (1.8-7.7); NEUTROPHILS % (AUTO) 67.9 % (40.0-70.0); PLATELET COUNT (AUTO) 363 K/uL (150-450); RED BLOOD CELL COUNT(AUTO) 5.16 MIL/uL (4.00-5.20); RED CELL DISTRIBUTION WIDTH 14.2 % (11.5-14.5); WHITE BLOOD COUNT (AUTO) 8.3 K/uL (4.5-11.0)
[2024-08-31 10:51] LABS: FREE T4 (FREE THYROXINE) 0.68 ng/dL (0.76-1.46); THYROID STIMULATING HORMONE 0.3 uIU/mL (0.36-3.74)
[2024-08-31 20:27] VITALS: RESP 16
[2024-09-01 08:25] VITALS: BP 107/74; PULSE 62; RESP 18; TEMP 97.7; O2SAT 95
[2024-09-01 20:00] VITALS: BP 102/62; PULSE 63; RESP 16; TEMP 97.6; O2SAT 97
[2024-09-02 08:49] VITALS: BP 100/60; PULSE 61; RESP 17; TEMP 97.8; O2SAT 98
[2024-09-02] MEDS: MAGNESIUM HYDROXIDE SUSPENSION 30 ML UDCUP PO PRN (14:27)
[2024-09-02 20:18] VITALS: BP 94/66; PULSE 90; RESP 17; TEMP 97.4; O2SAT 98
[2024-09-03 08:39] VITALS: BP 101/62; PULSE 63; RESP 18; TEMP 97.6; O2SAT 98
[2024-09-03 20:19] VITALS: BP 90/49; PULSE 60; RESP 18; TEMP 96.5; O2SAT 98
[2024-09-04 08:18] VITALS: BP 102/60; PULSE 60; RESP 16; TEMP 97.2; O2SAT 97
[2024-09-04 20:04] VITALS: BP 100/62; PULSE 62; RESP 17; TEMP 97.5
[2024-09-05 08:56] VITALS: BP 104/60; PULSE 62; RESP 17; TEMP 96.7; O2SAT 96
[2024-09-05 20:20] VITALS: BP 96/51; PULSE 60; RESP 16; TEMP 97; O2SAT 96
[2024-09-06 08:54] VITALS: BP 108/60; PULSE 60; RESP 17; TEMP 97.8; O2SAT 98
[2024-09-06 20:51] VITALS: BP 106/63; PULSE 63; RESP 16; TEMP 97.5; O2SAT 98
[2024-09-07 08:26] VITALS: BP 115/69; PULSE 76; RESP 19; TEMP 97.6; O2SAT 98
[2024-09-07] MEDS ORDERED: NALT50TA33 PO (16:47)
[2024-09-07] MEDS ORDERED: FLUO-418 PO (16:47)
[2024-09-07] MEDS ORDERED: OLAN10TA74 PO (16:48)
== END 2024-09-07 19:02 | disposition home or self-care (01) | DRG 750 ==
LOC: EMS 23:52 → EDBD 08-27 06:10 → B2S 08-27 06:10
PROVIDERS: ADMIT Psychiatry & Neurology Psychiatry; ATTEND Psychiatry & Neurology Psychiatry
PROC: GZHZZZZ Group Psychotherapy (ICD-10-PCS; principal; 2024-08-27)
PROC: GZ58ZZZ Individual Psychotherapy, Cognitive-Behavioral (ICD-10-PCS; 2024-08-27)
DX: F25.0 Schizoaffective disorder, bipolar type (principal); R45.851 Suicidal ideations; Z91.148 Patient's other noncompliance with medication regimen for other reason; F15.10 Other stimulant abuse, uncomplicated; F17.200 Nicotine dependence, unspecified, uncomplicated; Z20.822 Contact with and (suspected) exposure to COVID-19; F41.9 Anxiety disorder, unspecified; Z55.9 Problems related to education and literacy, unspecified; Z56.0 Unemployment, unspecified; Z59.00 Homelessness unspecified; Z63.9 Problem related to primary support group, unspecified; Z65.3 Problems related to other legal circumstances
CPT/HCPCS: 80048; 80061; 80307; 83036; 84439; 84443; 84703; 85025; 86592; 99285; G0480

== ENCOUNTER 2024-11-17 22:27 | Inpatient (IN) | payer MEDICAID ==
[~2024-11-17] VITALS: Ht 162.6 cm; Wt 68.9 kg
[~2024-11-17 22:27] MED LIST changes: -ARIP10TA38 PO; +BUPR-559 PO; +LITH300C3 PO; +MELA5TAB SL; +NALT50TA33 PO; +OLAN10TA74 PO; +PALI117D IM
[2024-11-18 00:05] LABS: COVID AG,FIA SOURCE NASAL SWAB
[2024-11-18 00:07] LABS: BASOPHILS % (AUTO) 1.2 % (0.0-2.0); EOSINOPHILS % (AUTO) 1.4 % (1.0-6.0); HEMATOCRIT 44.8 % (36-46); HEMOGLOBIN 14.7 g/dL (12.0-16.0); LYMPHOCYTES # (AUTO) 1.9 K/uL (1.0-4.8); LYMPHOCYTES % (AUTO) 16.6 % (22.0-44.0); MEAN CORPUSCULAR HEMOGLOBIN 30.8 pg (26.0-34.0); MEAN CORPUSCULAR HGB CONC 32.7 G/dL (31.0-37.0); MEAN CORPUSCULAR VOLUME 94 fL (80-100); MONOCYTES # (AUTO) 0.9 K/uL (0.1-1.0); MONOCYTES % (AUTO) 7.7 % (2.0-9.0); NEUTROPHILS # (AUTO) 8.5 K/uL (1.8-7.7); NEUTROPHILS % (AUTO) 73.1 % (40.0-70.0); PLATELET COUNT (AUTO) 348 K/uL (150-450); RED BLOOD CELL COUNT(AUTO) 4.76 MIL/uL (4.00-5.20); RED CELL DISTRIBUTION WIDTH 15.5 % (11.5-14.5); WHITE BLOOD COUNT (AUTO) 11.6 K/uL (4.5-11.0)
[2024-11-18 00:12] LABS: APPEARANCE,URINE CLEAR (CLEAR); BILIRUBIN,URINE NEGATIVE (NEGATIVE); COLOR,URINE LIGHT YELLOW (YELLOW); GLUCOSE, URINE (UA) NEGATIVE (NEGATIVE); KETONES,URINE TRACE mg/dL (NEGATIVE); LEUKOCYTE ESTERASE ,URINE NEGATIVE (NEGATIVE); NITRATE,URINE NEGATIVE (NEGATIVE); OCCULT BLOOD,URINE NEGATIVE (NEGATIVE); PROTEIN,URINE NEGATIVE (NEGATIVE); SPECIFIC GRAVITIY, URINE 1.018 (1.003-1.030)
[2024-11-18 00:19] LABS: ALCOHOL, URINE DRUG SCREEN NEGATIVE (NEGATIVE); AMPHET/METH SCREEN,URINE POSITIVE (NEGATIVE); BARBITURATE SCREEN, URINE NEGATIVE (NEGATIVE); BENZODIAZEPINES SCREEN,URINE NEGATIVE (NEGATIVE); CANNABINOID SCREEN,URINE NEGATIVE (NEGATIVE); COCAINE SCREEN,URINE NEGATIVE (NEGATIVE); METHADONE SCREEN, URINE NEGATIVE (NEGATIVE); OPIATE SCREEN,URINE NEGATIVE (NEGATIVE); PHENCYCLIDINE SCREEN,URINE NEGATIVE (NEGATIVE)
[2024-11-18 00:20] LABS: ANION GAP 4 mmol/L (8-16); CALCIUM, TOTAL 9.3 mg/dL (8.8-10.5); CARBON DIOXIDE 33 mmol/L (22-29); CHLORIDE 98 mmol/L (98-107); CREATININE 1.15 mg/dL (0.60-1.30); GLOMERULAR FILTR. RATE CALC 53 mL/min (>60); GLUCOSE,RANDOM 101 mg/dL (70-110); POTASSIUM 4.2 mmol/L (3.5-5.1); SODIUM SERUM 135 mmol/L (136-145); UREA NITROGEN, BLOOD 13 mg/dL (7-18)
[2024-11-18 00:22] LABS: ALCOHOL, BLOOD (SERUM) < 3 mg/dL (0-10)
[2024-11-18 00:28] LABS: SARS-COV2 (COVID) ANTIGEN,FIA Negative (Negative)
[2024-11-18] MEDS ORDERED: LORazepam 1 MG TABLET PO ONE (01:30)
[2024-11-18] MEDS: LORazepam 0.5 MG TABLET PO ONE (01:38)
[2024-11-18] MEDS ORDERED: HALOPERIDOL 5 MG TABLET PO PRN (03:45)
[2024-11-18] MEDS ORDERED: ZOLPIDEM TARTRATE 10 MG TABLET PO PRN (03:45)
[2024-11-18 06:17] VITALS: O2SAT 98
[2024-11-18] MEDS: CITALOPRAM HYDROBROMIDE 10 MG TABLET PO SCH (10:27)
[2024-11-18 11:09] VITALS: BP 123/78; PULSE 100; RESP 16; TEMP 98.9; O2SAT 98
[2024-11-18] MEDS ORDERED: INFLUENZA VIRUS VACCINE TVS (6MO+) 2024-25/PF 45 MCG/0.5 ML SYRINGE IM. ONE (12:45)
[2024-11-18] MEDS ORDERED: GuaiFENesin/D-METHORPHAN [SUGAR-FREE] 200-20MG/10 ML SYRUP UDCUP PO PRN (13:00)
[2024-11-18] MEDS ORDERED: LOPERAMIDE HCL 2 MG CAPSULE PO PRN (13:00)
[2024-11-18] MEDS ORDERED: MAGNESIUM HYDROXIDE SUSPENSION 30 ML UDCUP PO PRN (13:00)
[2024-11-18] MEDS ORDERED: NICOTINE 14 MG/24 HOUR PATCH TD PRN (13:00)
[2024-11-18] MEDS ORDERED: MAG HYDROX/ALUMINUM HYD/SIMETH ES 30 ML SUSPENSION UDCUP PO PRN (13:00)
[2024-11-18] MEDS ORDERED: ONDANSETRON 4 MG TABLET PO PRN (13:00)
[2024-11-18] MEDS ORDERED: PETROLATUM,WHITE 28 GM JELLY TP PRN (13:00)
[2024-11-18] MEDS ORDERED: IBUPROFEN 400 MG TABLET PO PRN (13:00)
[2024-11-18] MEDS ORDERED: DOCUSATE SODIUM 100 MG CAPSULE PO PRN (13:00)
[2024-11-18] MEDS ORDERED: CloNIDine HCL 0.1 MG TABLET PO PRN (13:00)
[2024-11-18] MEDS ORDERED: ACETAMINOPHEN 325 MG TABLET PO PRN (13:00)
[2024-11-18 20:32] VITALS: RESP 15
[2024-11-18] MEDS: OLANZapine 10 MG TABLET PO SCH (20:42)
[2024-11-19 09:01] VITALS: BP 111/70; PULSE 80; RESP 17; TEMP 97.6; O2SAT 97
[2024-11-19 09:20] LABS: THYROID STIMULATING HORMONE 0.32 uIU/mL (0.36-3.74)
[2024-11-19 20:50] VITALS: BP 102/57; PULSE 95; RESP 16; TEMP 97.6; O2SAT 96
[2024-11-20 08:12] VITALS: BP 121/66; PULSE 74; RESP 16; TEMP 96.9; O2SAT 98
[2024-11-20] MEDS: ALBUTEROL SULFATE HFA 90 MCG/PUFF 8 GM INHALER IH PRN (08:23)
[2024-11-20 08:30] VITALS: BP 110/65; PULSE 96; RESP 16; TEMP 97.9; O2SAT 96
[2024-11-20] MEDS: LORazepam 2 MG TABLET PO PRN (17:02)
[2024-11-20 20:02] VITALS: BP 128/86; PULSE 75; RESP 16; TEMP 97.5; O2SAT 96
[2024-11-21 08:15] VITALS: BP 118/79; PULSE 79; RESP 16; TEMP 97.6; O2SAT 96
[2024-11-21 20:07] VITALS: BP 103/73; PULSE 86; RESP 17; TEMP 97.4; O2SAT 97
[2024-11-22 08:16] VITALS: BP 120/76; PULSE 69; RESP 16; TEMP 97.6; O2SAT 97
[2024-11-22] MEDS ORDERED: CITA10TA99 PO (21:07)
[2024-11-22] MEDS ORDERED: OLAN10TA74 PO (21:07)
== END 2024-11-22 17:30 | disposition home or self-care (01) | DRG 750 ==
LOC: EMS 22:36 → B3A 11-18 03:55
PROVIDERS: ADMIT Psychiatry & Neurology Psychiatry; ATTEND Psychiatry & Neurology Psychiatry
PROC: GZHZZZZ Group Psychotherapy (ICD-10-PCS; principal; 2024-11-18)
PROC: GZ52ZZZ Individual Psychotherapy, Cognitive (ICD-10-PCS; 2024-11-18)
DX: F25.1 Schizoaffective disorder, depressive type (principal); R45.851 Suicidal ideations; F17.210 Nicotine dependence, cigarettes, uncomplicated; Z20.822 Contact with and (suspected) exposure to COVID-19; F15.10 Other stimulant abuse, uncomplicated; F41.9 Anxiety disorder, unspecified; G47.00 Insomnia, unspecified; Z79.899 Other long term (current) drug therapy; Z88.8 Allergy status to other drugs, medicaments and biological substances
CPT/HCPCS: 80048; 80061; 80307; 81003; 83036; 84443; 84703; 85025; 99285; G0480; J3535